=== PATIENT | male | born 1985 | race Caucasian/White ===

== ENCOUNTER 2021-08-09 08:56 | Emergency (ER) | payer OTHER ==
[~2021-08-09] VITALS: Ht 170.2 cm; Wt 79.4 kg
[2021-08-09 09:00] VITALS: BP 143/86
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
--- NOTE | 2021-08-09 10:30 | NUR ---
Patient out of bed asking to be discharged, Dr. Schaeffer made aware.
[2021-08-09 11:14] VITALS: BP 143/86
--- NOTE | 2021-08-09 11:15 | NUR ---
Patient discharged with v/s stable. Written and verbal after care instructions given and explained. Patient verbalized understanding. Ambulatory with steady gait. All questions addressed prior to discharge. Advised to follow up with PMD. Patient states mom will come and pick him up.
== END 2021-08-09 11:15 | disposition home or self-care (01) ==
LOC: MED 08:56
DX: F10.129 Alcohol abuse with intoxication, unspecified (principal); Z02.89 Encounter for other administrative examinations; V98.8XXA Other specified transport accidents, initial encounter; Y93.89 Activity, other specified; Y92.89 Other specified places as the place of occurrence of the external cause; Y99.8 Other external cause status; Y90.9 Presence of alcohol in blood, level not specified
CPT/HCPCS: 70450; 99284